=== PATIENT | male | born 1995 | race Caucasian/White ===

== ENCOUNTER 2018-06-03 20:51 | Emergency (ER) | payer SELFPAY ==
[~2018-06-03] VITALS: Ht 170.2 cm; Wt 95.3 kg
[2018-06-03 20:59] VITALS: BP 111/69
== END 2018-06-03 22:26 | disposition home or self-care (01) ==
LOC: ED 21:49
DX: G89.11 Acute pain due to trauma (principal); S60.412A Abrasion of right middle finger, initial encounter; W22.09XA Striking against other stationary object, initial encounter; Y93.89 Activity, other specified; Y99.2 Volunteer activity; Y92.009 Unspecified place in unspecified non-institutional (private) residence as the place of occurrence of the external cause; M25.561 Pain in right knee
CPT/HCPCS: 29505; 99284